=== PATIENT | male | born 1995 | race Caucasian/White ===

== ENCOUNTER 2023-07-27 19:18 | Emergency (ER) | payer SELFPAY ==
[~2023-07-27] VITALS: Ht 162.6 cm; Wt 82.0 kg
[2023-07-27 19:30] VITALS: O2SAT 99
[2023-07-27] MEDS: ACETAMINOPHEN 500MG TABLET PO ONE (20:00)
[2023-07-27] MEDS ORDERED: KETOROLAC 60MG/2ML VIAL IM ONE (20:00)
[2023-07-27 23:32] VITALS: BP 121/76; PULSE 88; RESP 16; TEMP 97.5
== END 2023-07-27 23:03 | disposition home or self-care (01) ==
LOC: ER 19:18
DX: S92.352A Displaced fracture of fifth metatarsal bone, left foot, initial encounter for closed fracture (principal); F19.90 Other psychoactive substance use, unspecified, uncomplicated; X58.XXXA Exposure to other specified factors, initial encounter; Y93.89 Activity, other specified; Y92.89 Other specified places as the place of occurrence of the external cause; Y99.8 Other external cause status
CPT/HCPCS: 71101; 73610; 73630; 99284; Z7610 ×2